=== PATIENT | female | born 1985 | race Caucasian/White ===

== ENCOUNTER 2018-04-23 12:39 | Emergency (ER) | payer MEDICAID, OTHER ==
[2018-04-23 12:48] VITALS: BP 109/61; PULSE 79; RESP 18; TEMP 98.4; O2SAT 100
[2018-04-23] MEDS ORDERED: Bacitracin Ointment 30 GM TUBE TOP STA (12:58)
--- NOTE | 2018-04-23 13:00 | C.PDOC ---
History Of Present Illness 33 year old female w/o significant PMHx presents to the emergency department for evaluation of redness, swelling, and itchiness to the right wrist which developed three days ago after sustaining an insect bite. Patient reports a subjective fever yesterday. Pt denies high fever, chills, throat tightness or swelling, drooling, cough, CP, SOB, wheezing, abd. pain, N/V, denies wound discharge, denies weakness, sensory or vascular deficits to her right hand, denies previous hx of allergy. Ambulate to ED for evaluation, not in any apparent distress. Time Seen by Provider: 04/23/18 12:45 Chief Complaint (Nursing): Abnormal Skin Integrity History Per: Patient History/Exam Limitations: no limitations Onset/Duration Of Symptoms: Days (3) Current Symptoms Are (Timing): Still Present Location Of Injury: Right: Wrist Quality Of Symptoms: Itching, Swollen, Other (redness) Past Medical History Reviewed: Historical Data, Nursing Documentation, Vital Signs Vital Signs: Last Vital Signs Temp 98.4 F 04/23/18 12:44 Pulse 79 04/23/18 12:44 Resp 18 04/23/18 12:44 BP 109/61 04/23/18 12:44 Pulse Ox 100 04/23/18 13:19 - Medical History PMH: No Chronic Diseases Denies: Diabetes, Hepatitis, HIV, HTN, Seizures, Sexually Transmitted Disease Surgical History: Family History: States: No Known Family Hx - Social History Hx Alcohol Use: No Hx Substance Use: No - Immunization History Hx Tetanus Toxoid Vaccination: Yes Hx Influenza Vaccination: No Hx Pneumococcal Vaccination: No Review Of Systems Except As Marked, All Systems Reviewed And Found Negative. Constitutional: Positive for: Fever Skin: Positive for: Other (erythema, swelling, itchiness to the right wrist. No wound discharge.) Neurological: Negative for: Weakness Physical Exam - Physical Exam Appears: Well, Non-toxic, No Acute Distress Skin: Warm, Dry, Other (small area of induration to ulnar aspect right wrist with surrounding erythema, mild edema, (+)scant weeping noticed. No proximal streaking, no flactulance ) Head: Normacephalic Eye(s): bilateral: PERRL Nose: No Flaring, No Discharge Oral Mucosa: Moist Tongue: No Swelling Lips: No Swelling Throat: No Erythema, No Drooling, Other (uvula midline, no edema.) Neck: Trachea Midline, Supple Chest: Symmetrical, No Tenderness Cardiovascular: Rhythm Regular, No Murmur, No JVD Respiratory: Decreased Breath Sounds, No Accessory Muscle Use, No Rales, No Rhonchi, No Stridor, No Wheezing Gastrointestinal/Abdominal: Soft, No Tenderness, No Guarding, No Rebound Extremity: Normal ROM (full ROM at the right wrist), No Pedal Edema, No Swelling Neurological/Psych: Oriented x3, Normal Speech, Normal Cognition, Normal Motor, Normal Sensation, Normal Reflexes ED Course And Treatment O2 Sat by Pulse Oximetry: 100 (RA) Pulse Ox Interpretation: Normal Progress Note: On re-eval, pt is afebrile, hemodynamically stable. Non-toxic. Ambulatory in ED with stable gait. PulseOx 100% on RA. ENT: no acute findings.Uvula midline, no edema. Neck: Supple, (-) JVD, (-) carotid bruits B/ L. Lungs: CTA B/L, BS equal B/L. RUE: exam c/w insect bite to ulnar aspect Right wrist with mild erythema and edema. No flactualnce, no proximal streaking. FAROM, no neurovascular deficits. Neurologically intact. Pt advised on course of ds and ref. to F/U with PMD In 2-3 days for re-eval. return to ED if any worsening or new changes. Disposition Counseled Patient/Family Regarding: Diagnosis, Need For Followup, Rx Given - Disposition Referrals: Eusebia Santos [Staff Provider] - Disposition: HOME/ ROUTINE Disposition Time: 13:00 Condition: STABLE Additional Instructions: Take medication as prescribed keep Right hand elevated Follow up with PMD in 2 days for re-evaluation. return to ED if any worsening or new changes. Prescriptions: Doxycycline Hyclate [Doryx] 100 mg PO BID #14 cap hydrOXYzine HCl [Atarax] 25 mg PO Q12 #10 tab Prednisone [Deltasone] 40 mg PO DAILY #6 tablet Instructions: Insect Bites and Stings Forms: [employer] (Kazakh) - Clinical Impression Clinical Impression: Insect bite - PA / [employer] / Resident Statement MD/DO has reviewed & agrees with the documentation as recorded. - Scribe Statement The provider has reviewed the documentation as recorded by the Scribe (Jens Nieto) All medical record entries made by the Scribe were at my direction and personally dictated by me. I have reviewed the chart and agree that the record accurately reflects my personal performance of the history, physical exam, medical decision making, and the department course for this patient. I have also personally directed, reviewed, and agree with the discharge instructions and disposition.
[2018-04-23] MEDS ORDERED: Bacitracin 500 Units/gm Oint Foilpak UD ONE (13:09)
== END 2018-04-23 13:42 | disposition home or self-care (01) ==
LOC: C.ER 12:39
DX: S60.861A Insect bite (nonvenomous) of right wrist, initial encounter (principal); W57.XXXA Bitten or stung by nonvenomous insect and other nonvenomous arthropods, initial encounter